=== PATIENT | female | born 1980 | race Caucasian/White ===

== ENCOUNTER 2016-11-14 09:45 | Emergency (ER) | payer OTHER ==
[~2016-11-14] VITALS: Ht 167.6 cm; Wt 102.5 kg
[2016-11-14 10:07] LABS: ABSOLUTE NEUTROPHILS 7.1 thou/uL (1.4-8.2); BASOPHILS 0.7 % (0.0-2.0); EOSINOPHILS 0.7 % (0.0-3.0); HEMATOCRIT 36.2 % (37.0-47.0); HEMOGLOBIN 11.6 gm/dL (12.0-15.0); LYMPHOCYTES 16.2 % (24.0-44.0); MCH 24.1 pg (26.0-34.0); MCHC 32.1 g/dL (28.0-37.0); MONOCYTES 4.6 % (1.0-8.0); PLATELET COUNT 266 thou/uL (150-400); POLYS 77.8 % (36.0-66.0); RBC 4.82 mil/uL (4.20-5.00); RDW 15.5 % (10.5-14.5); WBC 9.1 thou/uL (4.0-11.0)
[2016-11-14 10:09] LABS: MANUAL DIFF NO
[2016-11-14 10:19] LABS: CALCIUM 8.9 mg/dL (8.5-10.1); CREATININE 0.8 mg/dL (0.6-1.0); POTASSIUM 3.6 mmol/L (3.5-5.1)
[2016-11-14 10:23] LABS: ALBUMIN 3.8 g/dL (3.4-5.0); TOTAL BILIRUBIN 0.4 mg/dL (<0.1-1.0)
[2016-11-14 10:25] LABS: URINE BILIRUBIN NEGATIVE (Negative); URINE BLOOD 3+ (Negative); URINE COLOR YELLOW; URINE GLUCOSE-RANDOM* NEGATIVE (Negative); URINE KETONES NEGATIVE (Negative); URINE NITRITE NEGATIVE (Negative); URINE PROTEIN (DIPSTICK) 1+ (Negative); URINE SPECIFIC GRAVITY 1.025 (1.003-1.035); URINE UROBILINOGEN 0.2 E.U./dl (0.2-1.0)
[2016-11-14 10:54] LABS: SQUAMOUS >10 Many /LPF (0-3)
[2016-11-14 10:55] LABS: CASTS None Seen /LPF (None Seen); CRYSTALS None Seen /LPF (None Seen); URINE RBC >20 Many /HPF (0-2)
[2016-11-14 10:56] LABS: BACTERIA 1-9 Few /HPF (None Seen); URINE WBC 0-5 Rare /HPF (0-5)
[2016-11-14] MEDS ORDERED: HYDROCODONE-AP1 EAC6 PO (12:08)
[2016-11-14] MEDS ORDERED: PHENERGAN 25 MG25 M1 PO (12:08)
[2016-11-14] MEDS ORDERED: FLOMAX0.4 MG PO (12:08)
[2016-11-14 12:31] VITALS: BP 128/80
== END 2016-11-14 12:33 | disposition home or self-care (01) ==
LOC: ER 09:45
PROVIDERS: Physician Assistant
DX: N20.0 Calculus of kidney (principal)

== ENCOUNTER 2017-01-10 14:56 | Emergency (ER) | payer OTHER ==
[~2017-01-10] VITALS: Ht 167.6 cm; Wt 102.5 kg
--- NOTE | ~2017-01-10 | EKG ---
[address] [facility] 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
[~2017-01-10 14:56] MED LIST: FLOMAX0.4 MG PO; HYDROCODONE-AP1 EAC6 PO; PHENERGAN 25 MG25 M1 PO
[2017-01-10 14:59] VITALS: BP 134/95
[2017-01-10] MEDS ORDERED: ASPIR 8181 MG PO (15:14)
[2017-01-10 15:46] LABS: CALCIUM 8.9 mg/dL (8.5-10.1); CREATININE 0.7 mg/dL (0.6-1.0); POTASSIUM 3.4 mmol/L (3.5-5.1)
[2017-01-10 15:47] LABS: ABSOLUTE NEUTROPHILS 2.8 thou/uL (1.4-8.2); BASOPHILS 0.8 % (0.0-2.0); HEMATOCRIT 35.3 % (37.0-47.0); HEMOGLOBIN 11.3 gm/dL (12.0-15.0); LYMPHOCYTES 34.9 % (24.0-44.0); MANUAL DIFF NO; MCH 24.3 pg (26.0-34.0); MCV 76.1 fL (80.0-100.0); MONOCYTES 6.4 % (1.0-8.0); PLATELET COUNT 271 thou/uL (150-400); POLYS 55.9 % (36.0-66.0); RBC 4.64 mil/uL (4.20-5.00); RDW 15.8 % (10.5-14.5)
[2017-01-10 15:52] LABS: ALBUMIN 3.7 g/dL (3.4-5.0); TOTAL BILIRUBIN 0.3 mg/dL (<0.1-1.0); TOTAL PROTEIN 7.8 g/dL (6.4-8.2)
[2017-01-10] MEDS ORDERED: PHENERGAN 25 MG25 M1 PO (16:41)
[2017-01-11] MEDS ORDERED: ATIVAN0.5 MG PO (06:18)
[2017-01-11] MEDS ORDERED: BUTALB-APAP-CA1 EACH PO (06:20)
== END 2017-01-10 18:08 | disposition home or self-care (01) ==
LOC: ER 14:56
PROVIDERS: Nurse Practitioner Family
DX: R51 Headache (principal); F41.9 Anxiety disorder, unspecified; G51.0 Bell's palsy

== ENCOUNTER 2017-01-11 05:05 | Emergency (ER) | payer OTHER ==
[~2017-01-11] VITALS: Ht 167.6 cm; Wt 102.5 kg
--- NOTE | ~2017-01-11 | EKG ---
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
[~2017-01-11 05:05] MED LIST changes: +ASPIR 8181 MG PO
[2017-01-11 05:31] LABS: HEMATOCRIT 35.2 % (37.0-47.0); HEMOGLOBIN 11.4 gm/dL (12.0-15.0); MCH 24.7 pg (26.0-34.0); MCHC 32.5 g/dL (28.0-37.0); PLATELET COUNT 286 thou/uL (150-400); RBC 4.64 mil/uL (4.20-5.00); WBC 10.9 thou/uL (4.0-11.0)
[2017-01-11 05:32] LABS: MANUAL DIFF YES
[2017-01-11 05:50] LABS: ANION GAP 12 mmol/L (7-16); BUN 11 mg/dL (7-18); CALCIUM 9.4 mg/dL (8.5-10.1); CHLORIDE 103 mmol/L (98-107); CO2 23 mmol/L (21-32); CREATININE 0.6 mg/dL (0.6-1.0); GLUCOSE 152 mg/dL (74-106); POTASSIUM 3.7 mmol/L (3.5-5.1); SODIUM 138 mmol/L (136-145); TROPONIN-I < 0.04 ng/mL (<0.04-0.07)
[2017-01-11 05:52] LABS: LARGE PLATELETS OCCASIONAL; TOTAL CELL COUNT 100
[2017-01-11] MEDS ORDERED: ATIVAN0.5 MG PO (06:18)
[2017-01-11] MEDS ORDERED: BUTALB-APAP-CA1 EACH PO (06:20)
[2017-01-11 06:38] VITALS: BP 114/70
== END 2017-01-11 06:20 | disposition home or self-care (01) ==
LOC: ER 05:05
PROVIDERS: Emergency Medicine
DX: R51 Headache (principal); R20.9 Unspecified disturbances of skin sensation; G51.0 Bell's palsy

== ENCOUNTER 2017-02-23 04:10 | Emergency (ER) | payer OTHER ==
[~2017-02-23] VITALS: Ht 167.6 cm; Wt 101.6 kg
--- NOTE | ~2017-02-23 | EKG ---
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 : 1980 Requested By: Jazmin Espino Order Number: [id number] MD: Paolo Larkin Measurements Intervals [place] Rate: 102 P: 30 MA: 177 QRS: 76 QRSD: 112 T: 0 QT: 353 QTc: 460 Interpretive Statements Sinus tachycardia Borderline intraventricular conduction delay Compared to ECG 01/11/2017 05:24:56 No significant change was found Electronically Signed On 02-24-2017 8:31:35 CDT by Paolo Larkin [email or web address] <ELECTRONICALLY SIGNED> By: Paolo Larkin MD, [facility] 02/24/17 0831 0417 0417 Paolo Larkin MD, FACC /EPI
[~2017-02-23 04:10] MED LIST changes: +ATIVAN0.5 MG PO; +BUTALB-APAP-CA1 EACH PO
[2017-02-23 04:38] LABS: ABSOLUTE NEUTROPHILS 3.2 thou/uL (1.4-8.2); BASOPHILS 0.8 % (0.0-2.0); EOSINOPHILS 2.1 % (0.0-3.0); HEMATOCRIT 34.6 % (37.0-47.0); HEMOGLOBIN 10.9 gm/dL (12.0-15.0); LYMPHOCYTES 41.6 % (24.0-44.0); MCH 24.2 pg (26.0-34.0); MCHC 31.6 g/dL (28.0-37.0); MCV 76.5 fL (80.0-100.0); MONOCYTES 6.9 % (1.0-8.0); PLATELET COUNT 265 thou/uL (150-400); POLYS 48.6 % (36.0-66.0); RBC 4.53 mil/uL (4.20-5.00); RDW 15.8 % (10.5-14.5); WBC 6.6 thou/uL (4.0-11.0)
[2017-02-23 04:40] LABS: MANUAL DIFF NO
[2017-02-23 05:02] LABS: ANION GAP 8 mmol/L (7-16); BUN 15 mg/dL (7-18); CALCIUM 8.7 mg/dL (8.5-10.1); CHLORIDE 105 mmol/L (98-107); CO2 25 mmol/L (21-32); CREATININE 0.6 mg/dL (0.6-1.0); GLUCOSE 111 mg/dL (74-106); POTASSIUM 3.5 mmol/L (3.5-5.1); SODIUM 138 mmol/L (136-145)
[2017-02-23 05:10] LABS: TROPONIN-I < 0.04 ng/mL (<0.04-0.07)
[2017-02-23 05:51] LABS: URINE BILIRUBIN NEGATIVE (Negative); URINE BLOOD TRACE (Negative); URINE COLOR YELLOW; URINE GLUCOSE-RANDOM* NEGATIVE (Negative); URINE KETONES NEGATIVE (Negative); URINE NITRITE NEGATIVE (Negative); URINE PROTEIN (DIPSTICK) NEGATIVE (Negative); URINE SPECIFIC GRAVITY <= 1.005 (1.003-1.035); URINE UROBILINOGEN 0.2 E.U./dl (0.2-1.0)
[2017-02-23 07:44] VITALS: BP 122/75
== END 2017-02-23 07:46 | disposition home or self-care (01) ==
LOC: ER 04:10
PROVIDERS: Emergency Medicine
DX: R07.89 Other chest pain (principal); H93.19 Tinnitus, unspecified ear; G51.0 Bell's palsy

== ENCOUNTER 2017-03-17 09:09 | Emergency (ER) | payer OTHER ==
[~2017-03-17] VITALS: Ht 167.6 cm; Wt 99.8 kg
[2017-03-17 09:50] LABS: ABSOLUTE NEUTROPHILS 3.9 thou/uL (1.4-8.2); BASOPHILS 0.8 % (0.0-2.0); EOSINOPHILS 2.1 % (0.0-3.0); HEMATOCRIT 35.4 % (37.0-47.0); LYMPHOCYTES 28.5 % (24.0-44.0); MCH 23.7 pg (26.0-34.0); MCHC 31.1 g/dL (28.0-37.0); MONOCYTES 5.3 % (1.0-8.0); PLATELET COUNT 253 thou/uL (150-400); POLYS 63.3 % (36.0-66.0); RBC 4.66 mil/uL (4.20-5.00); RDW 15.1 % (10.5-14.5); WBC 6.1 thou/uL (4.0-11.0)
[2017-03-17 09:51] LABS: MANUAL DIFF NO
[2017-03-17 09:53] LABS: URINE BILIRUBIN NEGATIVE (Negative); URINE BLOOD 1+ (Negative); URINE COLOR YELLOW; URINE GLUCOSE-RANDOM* NEGATIVE (Negative); URINE KETONES NEGATIVE (Negative); URINE NITRITE NEGATIVE (Negative); URINE PROTEIN (DIPSTICK) NEGATIVE (Negative); URINE UROBILINOGEN 0.2 E.U./dl (0.2-1.0)
[2017-03-17 09:55] LABS: CALCIUM 9.1 mg/dL (8.5-10.1); CREATININE 0.7 mg/dL (0.6-1.0); POTASSIUM 3.7 mmol/L (3.5-5.1)
[2017-03-17 10:00] LABS: ALBUMIN 3.8 g/dL (3.4-5.0); TOTAL BILIRUBIN 0.2 mg/dL (<0.1-1.0); TOTAL PROTEIN 7.5 g/dL (6.4-8.2)
[2017-03-17 10:04] LABS: BACTERIA 1-9 Few /HPF (None Seen); CASTS None Seen /LPF (None Seen); CRYSTALS None Seen /LPF (None Seen); SQUAMOUS >10 Many /LPF (0-3); URINE WBC 0-5 Rare /HPF (0-5)
[2017-03-17] MEDS ORDERED: ONDANSETRON HCL4 M2 PO (11:07)
[2017-03-17] MEDS ORDERED: FLOMAX0.4 MG PO (11:07)
[2017-03-17 12:30] LABS: URINE BILIRUBIN NEGATIVE (Negative); URINE BLOOD 2+ (Negative); URINE GLUCOSE-RANDOM* NEGATIVE (Negative); URINE KETONES NEGATIVE (Negative); URINE NITRITE NEGATIVE (Negative); URINE PROTEIN (DIPSTICK) NEGATIVE (Negative); URINE SPECIFIC GRAVITY <= 1.005 (1.003-1.035); URINE UROBILINOGEN 0.2 E.U./dl (0.2-1.0)
[2017-03-17 12:33] LABS: URINE COLOR STRAW
[2017-03-17] MEDS ORDERED: HYDROCODONE-AP1 EAC6 PO (13:02)
[2017-03-17 13:03] LABS: BACTERIA 1-9 Few /HPF (None Seen); CASTS None Seen /LPF (None Seen); CRYSTALS None Seen /LPF (None Seen); SQUAMOUS None Seen /LPF (0-3); URINE RBC None Seen /HPF (0-2); URINE WBC None Seen /HPF (0-5)
[2017-03-17] MEDS ORDERED: TORADOL 10 MG T10 MG PO (13:03)
[2017-03-17 13:27] VITALS: BP 134/62
== END 2017-03-17 13:05 | disposition home or self-care (01) ==
LOC: ER 09:09
PROVIDERS: Physician Assistant
DX: N20.0 Calculus of kidney (principal); Z87.442 Personal history of urinary calculi; G51.0 Bell's palsy